=== PATIENT | female | born 1975 | race Caucasian/White ===

== ENCOUNTER 2021-05-28 03:20 | Emergency (ER) | payer OTHER ==
[2021-05-28 03:46] LABS: BILIRUBIN NEGATIVE (NEGATIVE); BLOOD 1+ Ery/uL (NEGATIVE); COLOR YELLOW (YELLOW); GLUCOSE (U) NORMAL (NORMAL); LEUKOCYTES NEGATIVE Leu/uL (NEGATIVE); NITRITE NEGATIVE (NEGATIVE); PROTEIN NEGATIVE (NEGATIVE); SPECIFIC GRAVITY >=1.030 (1.001-1.030); UROBILINOGEN 0.2 mg/dL (0.2-1.0)
[2021-05-28 03:47] LABS: CLARITY SLIGHTLY HAZY (CLEAR)
[2021-05-28 03:52] LABS: BASOPHIL 1.1 % (0-2); EOSINOPHIL 3.3 % (0-5); HGB 13.5 g/dl (12.5-16.0); LYMPHOCYTE 33.6 % (15-48); MCH 31.3 pg (25.0-31.0); MCHC 34.6 g/dL (32.0-36.0); MCV 90.5 fL (78.0-100.0); MONOCYTE 5.7 % (0-12); MPV 9.9 fL (6.0-9.5); NEUTROPHIL 56.1 % (41-80); NRBC 0; PLT 289 K/uL (150-400); RBC 4.31 M/uL (4.20-5.40); RDW 12.9 % (11.5-14.0); WBC 8.8 K/uL (4.0-10.5)
[2021-05-28 03:53] LABS: BACTERIA TRACE; SQUAMOUS EPITHELIAL CELLS RARE
[2021-05-28 03:54] LABS: MUCOUS TRACE
[2021-05-28 04:09] LABS: BUN/CREAT RATIO (CALC) 24.4 RATIO; CREATININE 0.78 mg/dL (0.51-0.95); POTASSIUM 3.9 mmol/L (3.5-5.1)
[2021-05-28] MEDS ORDERED: CIPRO500 MG PO (05:32)
[2021-05-28] MEDS ORDERED: IBUPROFEN800 MG PO (05:32)
[2021-05-28] MEDS ORDERED: FLOMAX0.4 MG PO (05:32)
[2021-05-28] MEDS ORDERED: NORCO 5-325 TA1 EACH PO (05:32)
== END 2021-05-28 05:48 | disposition home or self-care (01) ==
LOC: FER 03:20
PROVIDERS: Emergency Medicine Emergency Medical Services
DX: N30.00 Acute cystitis without hematuria (principal); N83.202 Unspecified ovarian cyst, left side; F17.210 Nicotine dependence, cigarettes, uncomplicated; Z87.442 Personal history of urinary calculi; Z87.440 Personal history of urinary (tract) infections; Z98.51 Tubal ligation status; Z79.82 Long term (current) use of aspirin; Z91.018 Allergy to other foods
CPT/HCPCS: 36415; 80048; 81001; 85025; 87088